=== PATIENT | female | born 1965 | race Caucasian/White ===

== ENCOUNTER 2016-10-28 07:00 | Day surgery (SDC) | payer OTHER ==
[~2016-10-28] VITALS: Ht 162.6 cm; Wt 149.7 kg
[~2016-10-28 07:00] MED LIST: ACID CONTROL150 MG PO; LORATADINE10 MG PO; NASONEX17 GM NS; PERCOCET 7.5-31 EACH PO; XYZAL5 MG PO
--- NOTE | 2016-10-28 08:04 | NUR ---
PT RESTING IN BED. ALERT AND ORIENTED. THIS IS HER FIRST SCOPE. SEEMED TO COPE WITH PREP APPROPRIATELY, FEW QUESTIONS. EXTENDED A BLESSING, WILL FOLLOW NEEDED
--- NOTE | 2016-10-28 08:50 | NUR ---
10/28/16 0850 AlfredoOlman maravilla PT ROLLED TO HER BACK AND DENIES ANY PAIN OR OTHER PROBLEMS.
--- NOTE | 2016-11-06 12:08 | OR ---
[facility] [address] [place] [address], [place] [address] Signed DATE OF SERVICE: 10/28/2016 PREOPERATIVE DIAGNOSIS: Iron-deficiency anemia. POSTOPERATIVE DIAGNOSES: Unremarkable upper endoscopy. 4-mm polyps at 25, 20, and 15 cm. PROCEDURES: EGD with CLOtest and biopsies of the antrum. Colonoscopy with hot biopsy. ESTIMATED BLOOD LOSS: None. INDICATIONS: Jose is a 51-year-old obese female, who is planning to have bariatric surgery at [facility] and [facility]. Her blood work came back with iron-deficiency anemia. Consequently, she has been asked to see me for upper and lower endoscopy. She has no up p er or lower GI complaints. She has never had a previous upper or lower endoscopy. There is no family history of colon cancer or polyps. I met with Jose in the office, and I gave her pamphlets on both upper and lower endoscopy. We looked at those togeth e r and reviewed the nature of the two tests along with the risks including, but not limited to gas bloating, crampy abdominal pain, bleeding, perforation requiring surgery, and missed diagnosis. She also understands the need for IV conscious sedation. Give n her body mass index and heavy thick neck, we asked that an anesthesia provider help us with increased monitoring and sedation with propofol. She had expressed understanding and wished to proceed. PROCEDURE: Jose was taken into our Endoscopy Suite and pl aced in the supine semi-recumbent position. The posterior oropharynx was anesthetized with Hurricaine spray. A bite block was utilized for the case. She was given IV sedation with propofol per our nurse post graduate intern. The adult gastroscope was introduced an d advanced all the way out into the third portion of the duodenum under direct visualization of the camera without difficulty. The duodenum, pyloric channel, and entire stomach were unremarkable. We took biopsies out of the antrum for pathologic review as w ell as CLOtest. Upon retroflexion of the scope, we could not see any obvious hiatal hernia. There was no gastric or esophageal varices. The scope was withdrawn up to the area of GE junction, which was compliant without stricture. She did have just a littl e disruption to the Z-line. No Munoz's mucosa. No distal esophagitis. The middle and upper esophagus were unremarkable. After this, the gas was suctioned out, and the gastroscope removed. Jose tolerated upper endoscopy quite well. Electronically Signed By: POLA CHAVARRIA MD 11/06/16 1208 PATIENT NAME: JOSE THOMPSON OPERATIVE REPORT DATE OF : 67 PHYSICIAN: POLA CHAVARRIA MD REPORT #: [id number] REPORT IS CONFIDENTIAL AND NOT TO BE RELEASED WITHOUT AUTHORIZATION [facility] [address] [place] [id number] Signed Jose was rotated into the left lateral decubitus position. She was maintained on IV sedation with propofol per our nurse post graduate intern. A digital rectal exam was performed, and this was unremarkable. The adult colonoscope was introduced and advanced all the way around into the cecum under direct visualization of the camera. We did use some abdominal compression in order to advance the scope down into the cecum itself. Her prep was quite good. The scope was then slowly withdrawn. The 3 polyps mentioned above were easily erik unique with a hot biopsy forceps. Upon retroflexion of the scope, there was no additional pathology noted above the anal canal. After this, the gas was suctioned out and the colonoscope removed. Jose tolerated the procedure quite well. RECOMMENDATIONS: I waldo l see Jose back in my office in 7 to 14 days to review her results. MD YARELI Santoro/Bret /[id number] cc: Dr. Jamey Hardin Electronically Signed By: POLA CHAVARRIA MD 11/06/16 1208 PATIENT NAME: JOSE THOMPSON OPERATIVE REPORT DATE OF : 67 PHYSICIAN: POLA CHAVARRIA MD REPORT #: [id number] REPORT IS CONFIDENTIAL AND NOT TO BE RELEASED WITHOUT AUTHORIZATION
== END 2016-10-28 09:19 | disposition home or self-care (01) ==
LOC: DS 07:00 → OPS 07:00 → DS 07:45 → OPS 09:19
PROVIDERS: Colon & Rectal Surgery
PROC: 0DBE8ZX Excision of Large Intestine, Via Natural or Artificial Opening Endoscopic, Diagnostic (ICD-10-PCS; principal; 2016-10-28 07:45)
PROC: 0DB68ZX Excision of Stomach, Via Natural or Artificial Opening Endoscopic, Diagnostic (ICD-10-PCS; 2016-10-28 07:45)
DX: K63.5 Polyp of colon (principal); K29.50 Unspecified chronic gastritis without bleeding; G47.33 Obstructive sleep apnea (adult) (pediatric); K21.9 Gastro-esophageal reflux disease without esophagitis; E66.9 Obesity, unspecified; E03.9 Hypothyroidism, unspecified; M19.90 Unspecified osteoarthritis, unspecified site; D50.9 Iron deficiency anemia, unspecified; F41.9 Anxiety disorder, unspecified; G43.909 Migraine, unspecified, not intractable, without status migrainosus; F32.9 Major depressive disorder, single episode, unspecified; Z90.49 Acquired absence of other specified parts of digestive tract; Z90.710 Acquired absence of both cervix and uterus; Z98.890 Other specified postprocedural states; Z88.5 Allergy status to narcotic agent; Z88.1 Allergy status to other antibiotic agents; Z88.8 Allergy status to other drugs, medicaments and biological substances; Z79.899 Other long term (current) drug therapy
CPT/HCPCS: 00740; 86677; J2250; J3010; J7120

== ENCOUNTER 2025-01-04 11:40 | Emergency (ER) | payer OTHER ==
[~2025-01-04] VITALS: Ht 162.6 cm; Wt 141.0 kg
[2025-01-04] MEDS ORDERED: OMEPRAZOLE20 MG PO (12:06)
[2025-01-04] MEDS ORDERED: PHENTERMINE H37.5 M1 PO (12:06)
[2025-01-04] MEDS ORDERED: BUPROPION XL300 MG PO (12:06)
[2025-01-04] MEDS ORDERED: PROPRANOLOL HC120 MG PO (12:07)
[2025-01-04] MEDS ORDERED: LEVOTHYROXINE88 MCG PO (12:07)
[2025-01-04] MEDS ORDERED: ALENDRONATE SOD70 MG PO (12:07)
[2025-01-04] MEDS ORDERED: KETOROLAC TROMETHAMINE 30 MG/ML VIAL IM ONE (13:30)
[2025-01-04] MEDS ORDERED: ACETAMINOPHEN 500 MG TAB PO ONE (13:30)
[2025-01-04] MEDS ORDERED: ONDANSETRON ODT4 MG PO (14:38)
[2025-01-04] MEDS ORDERED: PERCOCET 5-3251 EACH PO (14:38)
[2025-01-04 15:15] VITALS: BP 125/95
== END 2025-01-04 15:15 | disposition home or self-care (01) ==
LOC: ED 11:40
DX: S72.492A Other fracture of lower end of left femur, initial encounter for closed fracture (principal); W01.0XXA Fall on same level from slipping, tripping and stumbling without subsequent striking against object, initial encounter; Z88.5 Allergy status to narcotic agent; Z79.890 Hormone replacement therapy; Z79.899 Other long term (current) drug therapy
CPT/HCPCS: 73560; 73700; 96372; 99284-25; A9270; J1885